=== PATIENT | female | born 1975 | race Two or more races ===

== ENCOUNTER 2025-04-11 07:29 | Emergency (ER) | payer OTHER ==
[~2025-04-11] VITALS: Ht 157.5 cm; Wt 90.3 kg
[2025-04-11] MEDS ORDERED: SIMVASTATIN5 MG (07:42)
[2025-04-11] MEDS ORDERED: METADATE ER20 MG (07:42)
[2025-04-11] MEDS ORDERED: NASAL MIST126 ML (07:44)
[2025-04-11] MEDS ORDERED: 0.9 % SODIUM CHLORIDE 1,000 ML IV STA (07:54)
[2025-04-11] MEDS ORDERED: ONDANSETRON HCL 2 MG/ML VIAL IV STA (07:54)
[2025-04-11] MEDS ORDERED: HYOSCYAMINE SULFATE 0.125 MG TAB.SUBL SL ONE (08:00)
[2025-04-11] MEDS ORDERED: HYOSCYAMINE SULFATE 0.125 MG TAB.SUBL ONE (08:11)
[2025-04-11] MEDS ORDERED: ONDANSETRON HCL 2 MG/ML VIAL ONE (08:11)
[2025-04-11] MEDS ORDERED: KETOROLAC TROMETHAMINE 30 MG VIAL ONE (08:11)
[2025-04-11] MEDS ORDERED: KETOROLAC TROMETHAMINE 30 MG VIAL IV ONE (08:15)
[2025-04-11 09:04] LABS: BASO % 0.1 % (0.1-1.2); EOS # 0.04 (0.04-0.54); EOS % 0.5 % (0.7-7.0); LYMPH # 2.29 (1.18-3.74); LYMPH % 30.6 % (19.3-53.1); MEAN PLATELET VOLUME 9.40 fl (9.4-12.4); MONO # 0.41 (0.24-0.82); MONO % 5.5 % (4.7-12.5); NEUT # 4.72 (1.56-6.13); NEUT % 63.0 % (34.0-71.1); RED CELL DISTRIBUTION WIDTH 13.2 % (11.6-14.4)
[2025-04-11 09:12] LABS: ALT/SGPT 39.0 U/L (12-78); AST/SGOT 19.0 U/L (15-37); BILIRUBIN TOTAL 0.22 mg/dL (0.3-1.2); BUN CREA RATIO 18.0 (7.0-25.0); CREATININE SERUM 0.8 mg/dL (0.55-1.02); GFR 75.92; GLOBULINA 4.1 G/DL (2.4-3.5); GLUCOSE FASTING 131.0 mg/dL (65-100); OSMOLALITY SERUM 280.0 MOSM/KG (275-295)
[2025-04-11 09:26] LABS: ERYTHROCYTE SEDIMENTATION RATE 36 mm/hr (0-20)
[2025-04-11 09:31] LABS: URINE APPEARANCE Clear; URINE BILIRRUBIN Negative (NEGATIVE); URINE BLOOD Negative; URINE COLOR Yellow; URINE GLUCOSE Negative (NEGATIVE); URINE KETONE Negative (NEGATIVE); URINE LEUKOCYTE Negative; URINE NITRATE Negative; URINE PROTEIN Negative (NEGATIVE); URINE UROBILINOGEN 0.2 E.U./dl
[2025-04-11 09:31] LABS: INR 0.94
[2025-04-11 09:36] LABS: URINE BACTERIA 81.2 uL (0.0-1933); URINE EPITHELIAL CELLS 5.8 uL (0.0-38.8); URINE RBC 4.3 uL (0.0-20.8)
[2025-04-11 09:50] LABS: URINE CAST 0.00 uL (0.0-1.40); URINE WBC 1.5 uL (0.0-23.2)
[2025-04-11] MEDS ORDERED: LEVSIN/SL0.125 MG SL (14:03)
[2025-04-11] MEDS ORDERED: PEPCID AC20 MG PO (14:03)
[2025-04-11] MEDS ORDERED: PRILOSEC OTC20 MG PO (14:03)
== END 2025-04-11 14:37 | disposition home or self-care (01) ==
LOC: ER 07:29
PROVIDERS: Physician Assistant Medical
DX: K52.9 Noninfective gastroenteritis and colitis, unspecified (principal); N94.9 Unspecified condition associated with female genital organs and menstrual cycle; R11.10 Vomiting, unspecified; R10.9 Unspecified abdominal pain; R11.2 Nausea with vomiting, unspecified
CPT/HCPCS: 36415; 74177; Q9965